=== PATIENT | female | born 1980 | race Caucasian/White ===

== ENCOUNTER → 2016-04-21 | Outpatient (CLI) | payer OTHER ==
[~2016-04-21] MED LIST: METO50TA PO; PREN0.01 PO
[2016-04-21 17:08] LABS: CHLAMYDIA PCR NOT DETECTED (NOT DETECT); NEISSERIA PCR NOT DETECTED (NOT DETECT)
== END ==
LOC: CLAB 13:52
PROVIDERS: ATTEND Obstetrics & Gynecology
DX: Z11.3 Encounter for screening for infections with a predominantly sexual mode of transmission (principal)
CPT/HCPCS: 87491; 87591

== ENCOUNTER 2017-03-05 10:15 | Inpatient (IN) | payer OTHER ==
[~2017-03-05] VITALS: Ht 165.1 cm; Wt 108.0 kg
[2017-03-05] VITALS (14 sets, daily range): BP systolic 113–138; BP diastolic 65–83; PULSE 64–91; RESP 16–18; TEMP 98.2–98.8
[~2017-03-05 10:15] MED LIST changes: +METO100T PO; -METO50TA PO; -PREN0.01 PO; +PREN29TA PO; +ZOFR4TAB3 SL
[2017-03-05] MEDS ORDERED: LACTATED RINGER'S 1000 ML INJ 1,000 ML IV PRN (12:36)
[2017-03-05] MEDS: LACTATED RINGER'S 1000 ML INJ 1,000 ML IV SCH ×2 (12:36→23:50)
[2017-03-05] MEDS ORDERED: SODIUM CHLORIDE 0.9% FLUSH 10 ML FLUSH IV FLUSH PRN (12:45)
[2017-03-05] MEDS ORDERED: MINERAL OIL 10 ML VIAL TOPICAL PRN (12:45)
[2017-03-05] MEDS ORDERED: OXYTOCIN 30 UNITS-500ML PREMIX 500 ML IV ONE (12:45)
[2017-03-05] MEDS ORDERED: CITRIC ACID-SODIUM CITRATE LIQ 30 ML UDC PO SCH (12:45)
[2017-03-05] MEDS ORDERED: LIDOCAINE HCL 1% 50 ML VIAL I-DERMAL PRN (12:45)
[2017-03-05] MEDS ORDERED: LIDOCAINE HCL 1% 20 ML VIAL I-DERMAL PRN (12:45)
[2017-03-05] MEDS ORDERED: SODIUM CHLORID 0.9% 500 ML INJ 500 ML IV PRN (12:45)
[2017-03-05] MEDS ORDERED: LIDOCAINE HCL 1% 20 ML VIAL INFIL PRN (12:45)
[2017-03-05 12:52] LABS: AUTOMATED NEUTROPHIL # 9.4 TH/MM3 (1.8-7.7); BASOPHIL % 0.4 % (0.0-2.0); EOSINOPHIL # 0.1 TH/MM3 (0-0.4); EOSINOPHIL % 1.1 % (0.0-4.0); HEMATOCRIT 33.1 % (35.0-46.0); HEMOGLOBIN 10.8 GM/DL (11.6-15.3); LYMPH % 15.6 % (9.0-44.0); LYMPHOCYTE # 1.9 TH/MM3 (1.0-4.8); MEAN CELL VOLUME 76.3 FL (80.0-100.0); MEAN CORPUSCULAR HGB CONC 32.7 % (32.0-36.0); MEAN PLATELET VOLUME 8.2 FL (7.0-11.0); MONO % 5.1 % (0.0-8.0); MONOCYTE # 0.6 TH/MM3 (0-0.9); NEUT % 77.8 % (16.0-70.0); PLATELET COUNT 410 TH/MM3 (150-450); RED BLOOD COUNT 4.33 MIL/MM3 (4.00-5.30); RED CELL DISTRIBUTION WIDTH 18.9 % (11.6-17.2); WHITE BLOOD COUNT 12.1 TH/MM3 (4.0-11.0)
[2017-03-05] MEDS ORDERED: SODIUM CHLOR 0.9% 1000 ML INJ 1,000 ML IV PRN (12:56)
[2017-03-05 12:58] LABS: BACTERIA, URINE OCC /hpf; BILIRUBIN, URINE NEG (NEG); BLOOD, URINE TRACE (NEG); GLUCOSE,URINE NEG (NEG); HYALINE CAST, URINE 1 /lpf (RARE); KETONE, URINE TRACE mg/dL (NEG); MUCUS URINE FEW /lpf (OCC); NITRITE,URINE NEG (NEG); SQUAMOUS EPITHELIAL CELL URINE <1 /hpf (0-5); TRANSITIONAL EPI CELLS, URINE <1 /hpf; URINE COLOR YELLOW (YELLW/STRAW); URINE LEUKOCYTE ESTERASE NEG (NEG)
--- NOTE | 2017-03-05 13:10 | HHI.HP ---
HPI Chief Complaint hypertension at 38 4/7 week BP 138/100 Date Seen: Mar 05, 2017 Time Seen: 12:00 Travel History International Travel<30 Days: No Contact w/Intl Traveler<30Days: No Known Affected Area: No History of Present Illness HPI 36 yo who is 38 4/7 weeks and has had elevated BP all weekend. she had BP 138/100. Weeks Gestation: 38 Para: 0 : 1 History Past Medical History Narrative Medical anxiety, GERD, Hypertension on Metoprolol Obstetric History Obstetric History Past Surgical History Narrative Surgical cholecystectomy Family History Family History: Negative Social History Alcohol Use: No Tobacco Use: No Substance Abuse: No Allergies-Medications (Allergen,Severity, Reaction): Coded Allergies: cinnamon (Unverified Allergy, Severe, Anaphylaxis, 10/04/16) penicillin G (Unverified Allergy, Intermediate, Dizziness, Nausea, 10/04/16 ) aspirin (Unverified Allergy, Mild, nose bleeds, 10/04/16) Home Meds Active Scripts Ondansetron Odt (Zofran Odt) 4 Mg Tab, 4 MG SL Q6HR Y for Nausea/Vomiting, #6 TAB 0 Refills Prov:Gary Gregory MD 11/03/16 Reported Medications Vit-Iron Carbonyl ( Plus Iron 29-1 mg) 29 Mg Iron-1 Mg Tab, 1 TAB PO DAILY for Nutritional Supplement, #30 TAB 0 Refills 11/03/16 Metoprolol Tartrate (Metoprolol Tartrate) 100 Mg Tab, 100 MG PO BID, #60 TAB 0 Refills 11/03/16 Review of Systems Except as stated in HPI: all other systems reviewed are Neg Physical Exam Vital Signs Date Time Temp Pulse Resp B/P (MAP) Pulse Ox O2 Delivery O2 Flow Rate FiO2 03/05/17 12:44 77 115/65 (82) Narrative GENERAL: Well-nourished, well-developed patient. SKIN: Warm and dry. HEAD: Normocephalic and atraumatic. EYES: No scleral icterus. No injection or drainage. ENT: No nasal drainage noted. Mucous membranes pink. Airway patent. NECK: Supple, trachea midline. No JVD. CARDIOVASCULAR: Regular rate and rhythm without murmurs, gallops, or rubs. RESPIRATORY: Breath sounds equal bilaterally. No accessory muscle use. BREASTS: Bilateral exam showed no masses , no retractions, no nipple discharge. ABDOMEN/GI: Abdomen soft, non-tender, bowel sounds present, no rebound, no guarding Gravid to [-] weeks size Fundal Height: [-] GENITOURINARY: External Genitalia: intact and normal in appearance BUS glands: [-] Cervix: cl Dilatation: CL Effacement: [-] Station: [-] Presentation: VTX Membranes: Intact Uterine Contractions: [-] FHT's: Category: 1 Baseline: [-] Reactive: [-] Variability: [-] Decels: [-] EXTREMITIES: No cyanosis or edema. BACK: Nontender without obvious deformity. No CVA tenderness. NEUROLOGICAL: Awake and alert. Motor and sensory grossly within normal limits. Five out of 5 muscle strength in all muscle groups. Normal speech. Caprini VTE Risk Assessment Caprini VTE Risk Assessment: No/Low Risk (score <= 1) Caprini Risk Assessment Model Point Value = 1 Point Value = 2 Point Value = 3 Point Value = 5 Age 41-60 Minor surgery BMI > 25 kg/m2 Swollen legs Varicose veins or History of unexplained or recurrent spontaneous Oral contraceptives or hormone replacement Sepsis (< 1 month) Serious lung disease, including pneumonia (< 1 month) Abnormal pulmonary function Acute myocardial infarction Congestive heart failure (< 1 month) History of inflammatory bowel disease Medical patient at bed rest Age 61-74 Arthroscopic surgery Major open surgery (> 45 min) Laparoscopic surgery (> 45 min) Malignancy Confined to bed (> 72 hours) Immobilizing plaster cast Central venous access Age >= 75 History of VTE Family history of VTE Factor V Leiden Prothrombin [id number] Lupus anticoagulant Anticardiolipin antibodies Elevated serum homocysteine Heparin-induced thrombocytopenia Other congenital or acquired thrombophilia Stroke (< 1 month) Elective arthroplasty Hip, pelvis, or leg fracture Acute spinal cord injury (< 1 month) Prophylaxis Regimen Total Risk Factor Score Risk Level Prophylaxis Regimen 0-1 Low Early ambulation 2 Moderate Order ONE of the following: *Sequential Compression Device (SCD) *Heparin 5000 units SQ BID 3-4 Higher Order ONE of the following medications: *Heparin 5000 units SQ TID *Enoxaparin/Lovenox 40 mg SQ daily (WT < 150 kg, CrCl > 30 mL/min) *Enoxaparin/Lovenox 30 mg SQ daily (WT < 150 kg, CrCl > 10-29 mL/min) *Enoxaparin/Lovenox 30 mg SQ BID (WT < 150 kg, CrCl > 30 mL/min) AND/OR *Sequential Compression Device (SCD) 5 or more Highest Order ONE of the following medications: *Heparin 5000 units SQ TID (Preferred with Epidurals) *Enoxaparin/Lovenox 40 mg SQ daily (WT < 150 kg, CrCl > 30 mL/min) *Enoxaparin/Lovenox 30 mg SQ daily (WT < 150 kg, CrCl > 10-29 mL/min) *Enoxaparin/Lovenox 30 mg SQ BID (WT < 150 kg, CrCl > 30 mL/min) AND *Sequential Compression Device (SCD) Data Data Vital Signs Reviewed: Yes Orders Orders Admit To Inpatient (03/05/17 ) Code Status (03/05/17 12:36) Vital Signs (Adult) .Per protocol (03/05/17 12:36) Heart (03/05/17 12:36) Amnioinfusion (03/05/17 12:36) Urinary Catheter Management .ONCE (03/05/17 12:36) Lactated Ringer's 1000 Ml Inj (Lr 1000 M (03/05/17 12:36) Lactated Ringer's 1000 Ml Inj (Lr 1000 M (03/05/17 12:36) Sodium Chlorid 0.9% 500 Ml Inj (Ns 500 M (03/05/17 12:45) Sodium Chlor 0.9% 1000 Ml Inj (Ns 1000 M (03/05/17 12:56) Lidocaine 1% Inj (50 Ml) (Xylocaine 1% I (03/05/17 12:45) Citric Acid-Sodium Citrate Liq (Bicitra (03/05/17 12:45) Fentanyl Inj (Fentanyl Inj) (03/05/17 12:45) Fentanyl Inj (Fentanyl Inj) (03/05/17 12:45) Complete Blood Count With Diff (03/05/17 12:36) Hold Clot (03/05/17 12:36) Abo/Rh Blood Type (03/05/17 12:36) Urinalysis - C+S If Indicated (03/05/17 12:36) Drug Screen, Random Urine (03/05/17 12:36) Resp Oxygen Non Rebreathe Mask (03/05/17 ) ^ Epidural / Intrathecal Infus (03/05/17 12:36) Oxytocin 30 Units-500ml Premix (Pitocin (03/05/17 12:45) Light Mineral Oil (Muri-Lube Oil) (03/05/17 12:45) Inpatient Certification (03/05/17 ) Specimen To Be Collected PRN (03/05/17 12:36) Specimen To Be Collected PRN (03/05/17 12:36) Diet Regular Basic (03/05/17 Lunch) ^ Labor Induction (03/05/17 12:38) ^ Vaginal Insert (03/05/17 12:38) ^ Vaginal Lavage (03/05/17 12:38) Heart (03/05/17 12:38) Misoprostol (Cytotec) (03/05/17 16:45) Sodium Chloride 0.9% Flush (Ns Flush) (03/05/17 21:00) Sodium Chloride 0.9% Flush (Ns Flush) (03/05/17 12:45) Lidocaine 1% Inj (Xylocaine 1% Inj) (03/05/17 12:45) Lidocaine 1% Inj (Xylocaine 1% Inj) (03/05/17 12:45) Group B Strep: Negative Labs Laboratory Tests Test 03/05/17 11:40 White Blood Count 12.1 Red Blood Count 4.33 Hemoglobin 10.8 Hematocrit 33.1 Mean Corpuscular Volume 76.3 Mean Corpuscular Hemoglobin 25.0 Mean Corpuscular Hemoglobin Concent 32.7 Red Cell Distribution Width 18.9 Platelet Count 410 Mean Platelet Volume 8.2 Neutrophils (%) (Auto) 77.8 Lymphocytes (%) (Auto) 15.6 Monocytes (%) (Auto) 5.1 Eosinophils (%) (Auto) 1.1 Basophils (%) (Auto) 0.4 Neutrophils # (Auto) 9.4 Lymphocytes # (Auto) 1.9 Monocytes # (Auto) 0.6 Eosinophils # (Auto) 0.1 Basophils # (Auto) 0.0 CBC Comment DIFF FINAL Differential Comment Urine Color YELLOW Urine Turbidity CLEAR Urine pH 6.0 Urine Specific [place] 1.017 Urine Protein TRACE Urine Glucose (UA) NEG Urine Ketones TRACE Urine Occult Blood TRACE Urine Nitrite NEG Urine Bilirubin NEG Urine Urobilinogen LESS THAN 2.0 Urine Leukocyte Esterase NEG Urine RBC 1 Urine WBC 1 Urine Squamous Epithelial Cells <1 Urine Transitional Epithelial Cells <1 Urine Bacteria OCC Urine Hyaline Casts 1 Urine Mucus FEW Microscopic Urinalysis Comment CULT NOT INDICATED Assessment/Plan Problem List: (1) Hypertension complicating ICD Codes: O16.9 - Unspecified maternal hypertension, unspecified trimester Assessment and Plan induction for hypertension at 38 4/7 weeks Bacilio Altman MD Mar 05, 2017 13:10
[2017-03-05] MEDS ORDERED: MISOPROSTOL 100 MCG TAB ONE (13:13)
[2017-03-05] MEDS ORDERED: MISOPROSTOL 100 MCG TAB VAGINAL PRN (16:45)
[2017-03-05] MEDS: SODIUM CHLORIDE 0.9% FLUSH 10 ML FLUSH IV FLUSH SCH (21:00)
[2017-03-06] VITALS (147 sets, daily range): BP systolic 93–147; BP diastolic 48–86; PULSE 59–103; RESP 2–20; TEMP 98–100.1; O2SAT 96–98
[2017-03-06 00:01] LABS: ALBUMIN 2.6 GM/DL (3.4-5.0); ALT (GPT) 22 U/L (10-53); AST (GOT) 13 U/L (15-37); BICARBONATE 20.9 MEQ/L (21.0-32.0); BLOOD UREA NITROGEN 8 MG/DL (7-18); CALCIUM 8.7 MG/DL (8.5-10.1); CHLORIDE 106 MEQ/L (98-107); CREATININE 0.56 MG/DL (0.50-1.00); GLOMERULAR FILTRATION RATE 123 ML/MIN (>89); GLUCOSE,RANDOM 85 MG/DL (74-106); SODIUM (NA) 138 MEQ/L (136-145)
[2017-03-06 00:04] LABS: ALKALINE PHOSPHATASE 169 U/L (45-117); TOTAL BILIRUBIN ADULT 0.4 MG/DL (0.2-1.0); TOTAL PROTEIN 7.4 GM/DL (6.4-8.2)
[2017-03-06] MEDS ORDERED: ONDANSETRON HCL 4 MG/2 ML VIAL ONE (01:38)
[2017-03-06] MEDS ORDERED: ONDANSETRON HCL 4 MG/2 ML VIAL IV PUSH PRN (02:00)
[2017-03-06] MEDS ORDERED: OXYTOCIN 30 UNITS/NS 500ML PREMIX IV PRN (02:15)
[2017-03-06] MEDS: LACTATED RINGER'S 1000 ML INJ 1,000 ML IV SCH (06:38)
--- NOTE | 2017-03-06 07:05 | PD.LABORPN ---
Subjective Subjective doing well Objective Vital Signs Vital Signs Date Time Temp Pulse Resp B/P (MAP) Pulse Ox O2 Delivery O2 Flow Rate FiO2 03/06/17 05:33 77 125/68 (87) 03/06/17 05:33 98.0 18 03/06/17 01:43 98.4 73 18 126/68 (87) 03/06/17 00:50 18 03/05/17 23:54 18 03/05/17 23:17 64 138/83 (101) Objective Pelvic Exam: Cervix: [-] Dilatation: FT Effacement: [-] Station: [-] Presentation: vtx Membranes: AROM Uterine Contractions: [-] FHT's: Category: 1 Baseline: [-] Reactive: [-] Variability: [-] Decels: [-] Weeks Gestation: 38 Assessment/Plan Problem List: (1) Hypertension complicating ICD Codes: O16.9 - Unspecified maternal hypertension, unspecified trimester Bacilio Altman MD Mar 06, 2017 07:05
[2017-03-06] MEDS ORDERED: fentaNYL 2MCG-BUPIV 0.125% INJ 100 ML ONE (08:11)
[2017-03-06] MEDS ORDERED: NO SYSTEM NARCOTICS PRN (10:15)
[2017-03-06] MEDS ORDERED: ePHEDrine/NS 25 MG/5 ML SYRINGE IV PUSH PRN (10:15)
[2017-03-06] MEDS ORDERED: fentaNYL 2MCG-BUPIV 0.125% 100 ML EPIDURAL SCH (10:15)
[2017-03-06] MEDS ORDERED: DO NOT ADMINISTER ANTICOAGULANTS PRN (10:15)
[2017-03-06] MEDS ORDERED: DIPHTH/TETANUS/ACEL PERTUSSIS (BOOSTER) 0.5 ML VIAL/PFS IM ONE (16:00)
[2017-03-06] MEDS ORDERED: MEASLES, MUMPS, RUBELLA VACCINE 0.5 ML VIAL SQ ONE (16:00)
[2017-03-06] MEDS ORDERED: WITCH HAZEL 50%/GLYCERIN 12.5% 40 PAD JAR TOPICAL PRN (18:00)
[2017-03-06] MEDS ORDERED: ONDANSETRON ODT 4 MG TAB PO PRN (18:00)
[2017-03-06] MEDS ORDERED: ZOLPIDEM TARTRATE 5 MG TAB PO PRN (18:00)
[2017-03-06] MEDS ORDERED: SODIUM CHLORIDE 0.9% FLUSH 10 ML FLUSH IV FLUSH PRN (18:00)
[2017-03-06] MEDS ORDERED: ALUMINUM/MAGNESIUM/SIMETH 30 ML CUP PO PRN (18:00)
[2017-03-06] MEDS ORDERED: BENZOCAINE 20% TOPICAL SPRAY 60 ML CAN TOPICAL PRN (18:00)
[2017-03-06] MEDS ORDERED: OXYTOCIN 30 UNITS-500ML PREMIX 500 ML IV SCH (18:00)
[2017-03-06] MEDS ORDERED: ACETAMINOPHEN 325 MG TAB PO PRN (18:00)
--- NOTE | 2017-03-06 18:00 | PD.OB.DELI ---
Weeks gestation: 38 Anesthesia: Epidural Episiotomy: None Vaginal Delivery: Normal, Spontaneous Presentation: Occiput anterior Nuchal Cord: x2 Delayed cord clamping (45 sec): No Delivery date: Mar 06, 2017 Delivery time: 17:35 One Minute : 8 Five Minute : 9 Placenta: Spontaneous delivery, Intact, 3 vessel cord Laceration: Vaginal laceration, 2 deg Estimated blood loss: 300 Bacilio Altman MD Mar 06, 2017 18:00
[2017-03-06] MEDS: SODIUM CHLORIDE 0.9% FLUSH 10 ML FLUSH IV FLUSH SCH (21:00)
[2017-03-06] MEDS: oxyCODONE/ACETAMINOPHEN 5 MG/325 MG TAB PO PRN (21:35)
[2017-03-07] MEDS: oxyCODONE/ACETAMINOPHEN 5 MG/325 MG TAB PO PRN ×4 (02:08→18:34)
[2017-03-07 04:00] VITALS: BP 133/80; PULSE 82; RESP 20; TEMP 98.3
[2017-03-07] MEDS: IBUPROFEN 800 MG TAB PO PRN (05:51)
[2017-03-07 06:00] VITALS: TEMP 98
[2017-03-07 08:00] VITALS: BP 126/80; PULSE 91; RESP 18; TEMP 98.5; O2SAT 98
[2017-03-07] MEDS: DOCUSATE SODIUM 50 MG/SENNA 8.6 MG TAB PO PRN (08:20)
--- NOTE | 2017-03-07 08:51 | HHI.OB ---
Subjective Post Day: 1 Remarks doing well Objective Vitals/I&O Vital Signs Date Time Temp Pulse Resp B/P (MAP) Pulse Ox O2 Delivery O2 Flow Rate FiO2 03/07/17 06:00 98.0 03/07/17 04:00 98.3 82 20 133/80 (97) 03/06/17 22:00 100.1 72 18 121/72 (88) 03/06/17 20:30 20 03/06/17 19:31 81 03/06/17 19:31 125/65 (85) 03/06/17 19:30 18 03/06/17 19:16 79 115/63 (80) 03/06/17 19:01 78 119/67 (84) 03/06/17 18:46 72 119/64 (82) 03/06/17 18:31 75 129/64 (85) 03/06/17 18:30 20 03/06/17 18:18 88 132/77 (95) 03/06/17 18:00 20 03/06/17 18:00 2 03/06/17 18:00 99.1 03/06/17 17:46 88 117/67 (84) 03/06/17 17:05 86 03/06/17 17:01 95 131/83 (99) 03/06/17 17:00 77 03/06/17 16:55 73 03/06/17 16:50 74 03/06/17 16:46 70 124/66 (85) 03/06/17 16:45 72 03/06/17 16:40 73 03/06/17 16:35 74 03/06/17 16:31 77 114/64 (81) 03/06/17 16:30 73 03/06/17 16:25 73 03/06/17 16:20 76 03/06/17 16:16 75 104/60 (75) 03/06/17 16:15 80 03/06/17 16:12 103 105/51 (69) 03/06/17 16:10 74 03/06/17 16:05 81 03/06/17 16:01 81 104/59 (74) 03/06/17 16:00 76 03/06/17 15:55 83 03/06/17 15:50 84 03/06/17 15:46 68 107/52 (70) 03/06/17 15:45 74 03/06/17 15:40 75 03/06/17 15:35 75 03/06/17 15:31 77 105/54 (71) 03/06/17 15:30 76 03/06/17 15:25 76 03/06/17 15:20 78 03/06/17 15:16 76 106/56 (73) 03/06/17 15:15 80 03/06/17 15:10 80 03/06/17 15:05 77 03/06/17 15:01 81 113/53 (73) 03/06/17 15:00 98.6 20 03/06/17 15:00 81 03/06/17 14:55 81 03/06/17 14:50 76 03/06/17 14:46 71 121/80 (94) 03/06/17 14:45 73 03/06/17 14:40 79 03/06/17 14:35 73 03/06/17 14:31 77 117/75 (89) 03/06/17 14:30 74 03/06/17 14:25 76 03/06/17 14:20 86 03/06/17 14:16 79 126/74 (91) 03/06/17 14:15 72 03/06/17 14:10 72 03/06/17 14:05 74 03/06/17 14:01 78 125/74 (91) 03/06/17 14:00 73 03/06/17 13:55 80 03/06/17 13:53 73 127/76 (93) 03/06/17 13:50 71 03/06/17 13:46 72 116/69 (85) 03/06/17 13:45 70 03/06/17 13:40 72 18 13:35 73 18 13:31 71 117/71 (86) 03/06/17 13:30 73 03/06/17 13:25 73 18 13:20 73 18 13:16 74 119/69 (86) 03/06/17 13:15 73 03/06/17 13:10 75 03/06/17 13:05 71 03/06/17 13:01 72 120/73 (89) 03/06/17 13:00 73 18 13:00 99.6 18 03/06/17 12:55 73 96 03/06/17 12:50 77 96 03/06/17 12:46 78 120/76 (91) 03/06/17 12:45 76 98 18 12:40 77 97 03/06/17 12:35 78 97 03/06/17 12:31 73 122/71 (88) 03/06/17 12:30 76 98 03/06/17 12:25 78 18 12:20 78 18 12:16 76 127/73 (91) 03/06/17 12:15 80 03/06/17 12:10 77 03/06/17 12:05 73 03/06/17 12:01 89 132/77 (95) 03/06/17 12:00 76 03/06/17 12:00 98.8 20 03/06/17 11:55 78 03/06/17 11:50 78 03/06/17 11:46 121/72 (88) 03/06/17 11:46 73 18 11:45 83 18 11:40 81 18 11:35 83 03/06/17 11:31 80 123/70 (87) 03/06/17 11:30 78 03/06/17 11:25 80 18 11:20 80 03/06/17 11:16 90 118/67 (84) 03/06/17 11:15 68 03/06/17 11:10 79 18 11:05 74 18 11:01 75 117/72 (87) 18 11:00 72 18 10:55 74 106/72 (83) 18 10:55 73 03/06/17 10:50 72 18 10:46 76 106/48 (67) 03/06/17 10:45 79 18 10:40 75 03/06/18 10:35 75 18 10:31 79 110/65 (80) 03/06/17 10:25 79 18 10:24 80 108/61 (77) 03/06/17 10:20 81 03/06/17 10:16 84 93/64 (74) 03/06/17 10:15 81 03/06/17 10:10 83 03/06/17 10:05 82 03/06/17 10:01 90 110/64 (79) 03/06/17 10:00 98.7 03/06/17 10:00 18 03/06/17 10:00 83 03/06/17 09:56 90 123/64 (83) 03/06/17 09:55 83 03/06/17 09:51 86 121/66 (84) 03/06/17 09:50 79 03/06/17 09:46 77 129/75 (93) 03/06/17 09:45 75 03/06/17 09:41 82 130/74 (92) 03/06/17 09:40 73 03/06/17 09:36 88 128/67 (87) 03/06/17 09:35 77 03/06/17 09:31 83 137/76 (96) 03/06/17 09:30 83 03/06/17 09:29 88 130/79 (96) Objective Remarks GENERAL: Well-nourished, well-developed patient. ABDOMEN/GI: Abdomen soft, non-tender. Fundus: Firm, non-tender at umbilicus. GENITOURINARY: Light to moderate bleeding. EXTREMITIES: No cyanosis or edema, non-tender, without signs of DVT. Medications and IVs Current Medications Medications (Trade) Dose Ordered Sig/Nicole Route Start Time Stop Time Status Last Admin Lactated Ringer's 1,000 ml @ 125 mls/hr Q8H IV 03/05/17 12:36 03/06/17 06:38 Lactated Ringer's 1,000 ml @ 3,000 mls/hr Q20M PRN IV 03/05/17 12:36 03/06/17 09:04 Sodium Chloride 1,000 ml @ 100 mls/hr Q10H PRN IV 03/05/17 12:56 (Bicitra Liq) 30 ml PROCESS OPERATOR PO 03/05/17 12:45 03/09/17 12:44 (fentaNYL INJ) 50 mcg Q1H PRN IV PUSH 03/05/17 12:45 (fentaNYL INJ) 100 mcg Q1H PRN IV PUSH 03/05/17 12:45 03/06/17 08:05 (Xylocaine 1% Inj) 10 ml UNSCH X1 PRN INFIL 03/05/17 12:45 03/07/17 12:44 (Muri-Lube Oil) 10 ml UNSCH PRN TOPICAL 03/05/17 12:45 (NS Flush) 2 ml BID IV FLUSH 03/05/17 21:00 (NS Flush) 2 ml UNSCH PRN IV FLUSH 03/05/17 12:45 (Xylocaine 1% Inj) 0.1 ml UNSCH X1 PRN I-DERMAL 03/05/17 12:45 03/08/17 12:44 (Zofran Inj) 4 mg Q6H PRN IV PUSH 03/06/17 02:00 03/06/17 01:41 Oxytocin 500 ml @ 0 mls/hr TITRATE PRN IV 03/06/17 02:15 Miscellaneous Information No systemic narcotics to be given except... UNSCH PRN .XX 03/06/17 10:15 03/07/17 10:14 Miscellaneous Information DO NOT ADMINISTER ANY ANTICOAGUL... UNSCH PRN .XX 03/06/17 10:15 03/07/17 10:14 Fentanyl/ Bupivacaine HCl 100 ml @ 0 mls/hr TITRATE EPIDURAL 03/06/17 10:15 (ePHEDrine/NS 25 MG/5 ML SYR) 10 mg UNSCH PRN IV PUSH 03/06/17 10:15 03/07/17 10:14 (NS Flush) 2 ml BID IV FLUSH 03/06/17 21:00 (NS Flush) 2 ml UNSCH PRN IV FLUSH 03/06/17 18:00 (Tylenol) 650 mg Q4H PRN PO 03/06/17 18:00 (Motrin) 800 mg Q8H PRN PO 03/06/17 18:00 03/07/17 05:51 (Percocet 5-325 Mg) 1 tab Q4H PRN PO 03/06/17 18:00 03/07/17 02:08 (Percocet 5-325 Mg) 2 tab Q4H PRN PO 03/06/17 18:00 03/07/17 08:20 (Americaine 20% Top Spr) 1 spray Q4H PRN TOPICAL 03/06/17 18:00 03/07/17 08:20 (Tucks Pads) 1 applic QID PRN TOPICAL 03/06/17 18:00 03/07/17 08:20 (Maryam-Colace) 2 tab Q12H PRN PO 03/06/17 18:00 03/07/17 08:20 (Ambien) 5 mg HS PRN PO 03/06/17 18:00 (Mag-Al Plus Susp Liq) 15 ml Q8H PRN PO 03/06/17 18:00 (Zofran Odt) 4 mg Q6H PRN PO 03/06/17 18:00 Assessment/Plan Problem List: (1) Hypertension complicating ICD Codes: O16.9 - Unspecified maternal hypertension, unspecified trimester (2) (spontaneous vaginal delivery) ICD Codes: O80 - Encounter for full-term uncomplicated delivery Assessment and Plan induction for hypertension at 38 4/7 weeks Bacilio Altman MD Mar 07, 2017 08:51
[2017-03-07] MEDS: SODIUM CHLORIDE 0.9% FLUSH 10 ML FLUSH IV FLUSH SCH ×2 (19:24→19:25)
[2017-03-07] MEDS: LACTATED RINGER'S 1000 ML INJ 1,000 ML IV SCH ×2 (19:25→19:26)
[2017-03-07 20:00] VITALS: BP 107/66; PULSE 67; RESP 18; TEMP 97.8; O2SAT 99
--- NOTE | 2017-03-08 08:39 | HHI.OB ---
Subjective Post Day: 2 Remarks doing well Objective Vitals/I&O Vital Signs Date Time Temp Pulse Resp B/P (MAP) Pulse Ox O2 Delivery O2 Flow Rate FiO2 03/07/17 20:00 97.8 67 18 107/66 (80) 99 Objective Remarks GENERAL: Well-nourished, well-developed patient. ABDOMEN/GI: Abdomen soft, non-tender. Fundus: Firm, non-tender at umbilicus. GENITOURINARY: Light to moderate bleeding. EXTREMITIES: No cyanosis or edema, non-tender, without signs of DVT. Medications and IVs Current Medications Medications (Trade) Dose Ordered Sig/Nicole Route Start Time Stop Time Status Last Admin Lactated Ringer's 1,000 ml @ 125 mls/hr Q8H IV 03/05/17 12:36 03/06/17 06:38 Lactated Ringer's 1,000 ml @ 3,000 mls/hr Q20M PRN IV 03/05/17 12:36 03/06/17 09:04 Sodium Chloride 1,000 ml @ 100 mls/hr Q10H PRN IV 03/05/17 12:56 (Bicitra Liq) 30 ml HOSIERY LOOPER PO 03/05/17 12:45 03/09/17 12:44 (fentaNYL INJ) 50 mcg Q1H PRN IV PUSH 03/05/17 12:45 (fentaNYL INJ) 100 mcg Q1H PRN IV PUSH 03/05/17 12:45 03/06/17 08:05 (Muri-Lube Oil) 10 ml UNSCH PRN TOPICAL 03/05/17 12:45 (NS Flush) 2 ml BID IV FLUSH 03/05/17 21:00 (NS Flush) 2 ml UNSCH PRN IV FLUSH 03/05/17 12:45 (Xylocaine 1% Inj) 0.1 ml UNSCH X1 PRN I-DERMAL 03/05/17 12:45 03/08/17 12:44 (Zofran Inj) 4 mg Q6H PRN IV PUSH 03/06/17 02:00 03/06/17 01:41 Oxytocin 500 ml @ 0 mls/hr TITRATE PRN IV 03/06/17 02:15 Fentanyl/ Bupivacaine HCl 100 ml @ 0 mls/hr TITRATE EPIDURAL 03/06/17 10:15 (NS Flush) 2 ml BID IV FLUSH 03/06/17 21:00 (NS Flush) 2 ml UNSCH PRN IV FLUSH 03/06/17 18:00 (Tylenol) 650 mg Q4H PRN PO 03/06/17 18:00 (Motrin) 800 mg Q8H PRN PO 03/06/17 18:00 03/07/17 05:51 (Percocet 5-325 Mg) 1 tab Q4H PRN PO 03/06/17 18:00 03/07/17 14:50 (Percocet 5-325 Mg) 2 tab Q4H PRN PO 03/06/17 18:00 03/07/17 18:34 (Americaine 20% Top Spr) 1 spray Q4H PRN TOPICAL 03/06/17 18:00 03/07/17 08:20 (Tucks Pads) 1 applic QID PRN TOPICAL 03/06/17 18:00 03/07/17 08:20 (Maryam-Colace) 2 tab Q12H PRN PO 03/06/17 18:00 03/07/17 08:20 (Ambien) 5 mg HS PRN PO 03/06/17 18:00 (Mag-Al Plus Susp Liq) 15 ml Q8H PRN PO 03/06/17 18:00 (Zofran Odt) 4 mg Q6H PRN PO 03/06/17 18:00 Assessment/Plan Problem List: (1) Hypertension complicating ICD Codes: O16.9 - Unspecified maternal hypertension, unspecified trimester (2) (spontaneous vaginal delivery) ICD Codes: O80 - Encounter for full-term uncomplicated delivery Assessment and Plan doing well Bacilio Altman MD Mar 08, 2017 08:39
[2017-03-08] MEDS ORDERED: PROCHCT RECTAL (08:41)
[2017-03-08] MEDS ORDERED: OXYC1TAB63 PO (08:41)
--- NOTE | 2017-03-08 08:42 | HHI.DCPOC ---
Discharge Care Plan Diagnosis: (1) Hypertension complicating (2) (spontaneous vaginal delivery) Report Symptoms to Your Doctor -Temperature above 100.5 degrees -Redness, of incision or excessive or foul smelling drainage -Unusual pain or calf pain -Increased vaginal bleeding -Painful or difficulty urinating -Feelings of extreme sadness or anxiety after 2 weeks Goals to Promote Your Health * To prevent worsening of your condition and complications * To maintain your health at the optimal level Directions to Meet Your Goals Take your medications as prescribed Follow your dietary instruction Follow activity as directed Ensure plenty of rest for recovery Drink fluids for hydration Keep your appointments as scheduled Take your immunizations and boosters as scheduled If your symptoms worsen call your PCP, if no PCP go to Urgent Care Center or Emergency Room Smoking is Dangerous to Your Health. Avoid second hand smoke Call the 24-hour crisis hotline for domestic abuse at Bacilio Altman MD Mar 08, 2017 08:42
--- NOTE | 2017-03-08 08:45 | HHI.DS ---
Admission Date Mar 05, 2017 at 10:15 Discharge Date: Mar 08, 2017 Admitting Diagnosis Diagnosis: (1) (spontaneous vaginal delivery) Diagnosis: Principal ICD Codes: O80 - Encounter for full-term uncomplicated delivery Delivery Date: Mar 06, 2017 Vaginal Delivery: Normal, Spontaneous Infant: Single Brief History 36 yo who is 38 4/7 weeks and has had elevated BP all weekend. she had BP 138/100. Hospital Course doing well post dc home today Pt Condition on Discharge: Good Discharge Disposition: Discharge Home Discharge Instructions Diet Instructions: As Tolerated, No Restrictions Activities You Can Perform: Pelvic Rest Activities to Avoid: Driving for 24 hrs Follow up Referrals: [facility] - 2 Weeks @ [facility] with Bacilio Altman MD New Medications: Hydrocortisone-Pramoxine Rectal (Proctofoam Hc Rectal) 1-1% Foam 1 APPLIC RECTAL Q8H PRN for ITCHING/INFLAMMATION, #1 CAN 2 Refills Oxycodone HCl/Acetaminophen (Oxycodone-Acetaminophen 5-325) 5 Mg-325 Mg Tablet 1 TAB PO Q4H PRN for PAIN SCALE 3 TO 5, #20 TAB Continued Medications: Vit-Iron Carbonyl ( Plus Iron 29-1 mg) 29 Mg Iron-1 Mg Tab 1 TAB PO DAILY for Nutritional Supplement, #30 TAB 0 Refills Discontinued Medications: Ondansetron Odt (Zofran Odt) 4 Mg Tab 4 MG SL Q6HR PRN for Nausea/Vomiting, #6 TAB 0 Refills Bacilio Altman MD Mar 08, 2017 08:45
[2017-03-08] MEDS: IBUPROFEN 800 MG TAB PO PRN (09:02)
[2017-03-08] MEDS: DOCUSATE SODIUM 50 MG/SENNA 8.6 MG TAB PO PRN (09:02)
[2017-03-08] MEDS: oxyCODONE/ACETAMINOPHEN 5 MG/325 MG TAB PO PRN (09:02)
== END 2017-03-08 10:40 | disposition home or self-care (01) | DRG 775 ==
LOC: H2EA 10:15 → H1EA 03-06 20:52
PROVIDERS: ADMIT Obstetrics & Gynecology; ATTEND Obstetrics & Gynecology
PROC: 3E0P7VZ Introduction of Hormone into Female Reproductive, Via Natural or Artificial Opening (ICD-10-PCS; 2017-03-05)
PROC: 10E0XZZ Delivery of Products of Conception, External Approach (ICD-10-PCS; principal; 2017-03-06)
PROC: 0KQM0ZZ Repair Perineum Muscle, Open Approach (ICD-10-PCS; 2017-03-06)
PROC: 00HU33Z Insertion of Infusion Device into Spinal Canal, Percutaneous Approach (ICD-10-PCS; 2017-03-06)
PROC: 3E0R3BZ Introduction of Anesthetic Agent into Spinal Canal, Percutaneous Approach (ICD-10-PCS; 2017-03-06)
DX: O16.4 Unspecified maternal hypertension, complicating childbirth (principal); K21.9 Gastro-esophageal reflux disease without esophagitis; O69.81X0 Labor and delivery complicated by cord around neck, without compression, not applicable or unspecified; O70.1 Second degree perineal laceration during delivery; Z37.0 Single live birth; Z3A.38 38 weeks gestation of pregnancy; Z88.0 Allergy status to penicillin; Z88.8 Allergy status to other drugs, medicaments and biological substances
CPT/HCPCS: 59025; 80053; 80307; 81001; 85025; 86900; 86901; 90715; J2405; J3010; J7120